=== PATIENT | female | born 1980 | race Caucasian/White ===

== ENCOUNTER 2017-01-23 02:56 | Emergency (ER) | payer MEDICAID, OTHER ==
[~2017-01-23] VITALS: Ht 167.6 cm; Wt 84.0 kg
[2017-01-23 03:04] VITALS: Ht 167.6 cm; Wt 84.0 kg
[2017-01-23] MEDS ORDERED: LIDOCAINE 1% (MDV) 20 ML INJ ONE (03:28)
[2017-01-23] MEDS ORDERED: LIDOCAINE 2% (MDV) 20 ML INJ INJ ONE (03:30)
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
[2017-01-23] MEDS ORDERED: IBUPROFEN 800 MG TAB PO ONE (04:30)
== END 2017-01-23 04:13 ==
LOC: E/R 02:56
DX: S61.301A Unspecified open wound of left index finger with damage to nail, initial encounter (principal); S61.307A Unspecified open wound of left little finger with damage to nail, initial encounter; Y08.89XA Assault by other specified means, initial encounter